=== PATIENT | male | born 1955 | race Caucasian/White ===

== ENCOUNTER 2024-12-09 06:23 | Inpatient (IN) ==
[2024-12-09] MEDS ORDERED: PRECEDEX INJ VIAL ONE (06:54)
[2024-12-09] MEDS ORDERED: KETAMINE HCL ONE (06:54)
--- NOTE | 2024-12-09 07:48 | EKG ---
Test Reason : pre-op patient Blood Pressure : */* mmHG Vent. Rate : 61 BPM Atrial Rate : 61 BPM P-R Int : 200 ms QRS Dur : 104 ms QT Int : 436 ms P-R-T Axes : 24 -36 38 degrees QTc Int : 438 ms Normal sinus rhythm Left axis deviation Low voltage QRS Possible Lateral infarct , age undetermined Abnormal ECG No previous ECGs available Confirmed by Williams Dove MD ([id number]) on 12/09/2024 10:59:09 AM Referred By: Confirmed By: Williams Dove MD
[2024-12-09 08:01] LABS: MEAN PLATELET VOLUME 8.2 fL (7.4-11.0); RED CELL DISTRIBUTION WIDTH 13.8 % (11.6-16.5)
[2024-12-09 08:17] LABS: COR NA(FOR HYPERGLY) 140 mmol/L (136-145); CREATININE 1.33 mg/dL (0.70-1.30); eGFR NON BLACK RACES 56 (>60)
[2024-12-09] MEDS: LR 1,000 ML IV 1,000 ML IV SCH (09:30)
--- NOTE | 2024-12-09 10:42 | DR.H&P ---
H&P History & Physical for Day of: H&P Date: 12/09/24 Chief Complaint Chief Complaint: Painful cold left great toe and other toes History of Present Illness History of Present Illness: This patient is 69-year-old male who is a resident of a skilled nurse facility with multiple medical problems including atrial fibrillation on anticoagulation, Parkinson disease, schizophrenia, hypertension, hyperlipidemia, hypothyroidism, gout and gastroesophageal reflux who has pain in his left great toe with discoloration consistent with ischemia. He denies diabetes and has never been a smoker. He also has the stigmata of both leg having significant venous insufficiency. He is here for control of the pain and evaluation for possible arterial intervention. Past Medical History Past Medical History: Dyslipidemia, GERD, Gout, Hypertension, Hypothyroidism and Schizophrenia Additional Medical History: Atrial fibrillation, Parkinson disease, Past Surgical History Surgical History: Appendectomy and Cholecystectomy Family History Family Medical History: Diabetes Mellitus and Coronary Artery Disease Social History Does patient currently use any type of tobacco product: No Alcohol Use: None Drug Use: None Medications Home Medications: Home Medications Medication Instructions Recorded Confirmed Type acetaminophen 325 mg capsule 650 mg PO QID PRN Headach e 12/09/24 12/09/24 History allopurinol 100 mg tablet 100 mg PO DAILY 12/09/2408/30 History apixaban 5 mg tablet (Eliquis) 5 mg PO BID 12/09/24 History aspirin 81 mg tablet 81 mg PO DAILY 12/09/2408/30 History calcium carbonate 600 mg PO DAILY 12/09/2408/30 History carbidopa 25 mg-levodopa 100 mg 1 tab PO QID 12/09/24 12/09/24 History tablet castor oil 1 ea miscellaneous HS 12/09/24 History cholecalciferol (vitamin D3) 125 50,000 unit PO WEEKLY 12/09/24 12/09/24 History mcg (5,000 unit) tablet (Vitamin D3) dicyclomine 10 mg capsule 10 mg PO BID 12/09/24 History docusate sodium 100 mg capsule 100 mg PO BID 12/09/24 12/09/24 History (Colace) ferrous sulfate 325 mg (65 mg 325 mg PO TID 12/09/24 0 12/09/24 History iron) tablet fluticasone propionate 50 1 spray intranasal DAILY 08/3012/09/24 History mcg/actuation nasal spray,suspension (Flonase Allergy Relief) furosemide 40 mg tablet (Lasix) 40 mg PO DAILY 5 12/09/24 History gabapentin 300 mg capsule 300 mg PO BID 12/09/2412/09 History levothyroxine 75 mcg tablet 75 mcg PO QAM 12/09/2408/30 History (Synthroid) linaclotide 72 mcg capsule 72 mcg PO DAILY PRN 5 12/09/24 History (Linzess) loratadine 10 mg tablet 10 mg PO DAILY 12/09/2408/30 History metoclopramide HCl 5 mg tablet 10 mg PO ACHS 12/09/24 12/09/24 History metolazone 2.5 mg tablet 2.5 mg PO QMWF 12/09/2408/30 History ondansetron HCl 4 mg tablet 4 mg PO HS 12/09/24 History pantoprazole 40 mg tablet,delayed 40 mg PO BID 5 12/09/24 History release (Protonix) phenobarbital 15 mg tablet 45 mg PO DAILY 12/09/2408/30 History phenobarbital 30 mg tablet 30 mg PO HS 12/09/24 History pimavanserin 34 mg capsule 34 mg PO DAILY 12/09/2408/30 History (Nuplazid) pimozide 1 mg tablet 1 mg PO DAILY 12/09/2412/09 History polyethylene glycol 3350 17 gram 17 g PO DAILY PRN Con stipation 12/09/24 12/09/24 History oral powder packet polyvinyl alcohol 1.4 % eye drops 1 drp ophthalmic (ey e) BID 12/09/24 12/09/24 History simethicone 125 mg chewable tablet 125 mg PO TID PRN D yspepsia 12/09/24 12/09/24 History simvastatin 40 mg tablet 40 mg PO HS 12/09/24 5 History sucralfate 1 gram tablet (Carafate) 1 g PO QID 5 12/09/24 History topiramate 25 mg tablet 25 mg PO BID 12/09/24 History tramadol 50 mg tablet 50 mg PO QID PRN Pain, Moder ate 12/09/24 12/09/24 History Allergies Allergies Allergy/AdvReac Type Severity Reaction Status Date / Time adhesive tape Allergy Verified 12/09/24 08:39 codeine Allergy Verified 12/09/24 08:39 hydrocodone Allergy Verified 12/09/24 08:39 Labs 12/09/24 07:52 12/09/24 07:52 Labs: Laboratory WBC 8.6 X10^3/uL (3.6-10.0) 12/09/24 07:52 RBC 4.16 X10^6/uL (4.7-6.0) L 12/09/24 07:52 Hgb 13.2 g/dL (13.5-18.0) L 12/09/24 07:52 Hct 38.8 % (42.0-54.0) L 12/09/24 07:52 MCV 93.3 fL (80.0-100.0) 12/09/24 07:52 MCH 31.7 pg (27.0-34.0) 12/09/24 07:52 MCHC 34.0 g/dL (33.0-35.0) 12/09/24 07:52 RDW 13.8 % (11.6-16.5) 12/09/24 07:52 Plt Count 165 X10^3/uL (150.0-450.0) 12/09/24 07:52 MPV 8.2 fL (7.4-11.0) 12/09/24 07:52 Neut % (Auto) 67.0 % (42.0-75.0) 12/09/24 07:52 Lymph % (Auto) 21.9 % (21.0-51.0) 12/09/24 07:52 [place] % (Auto) 6.9 % (0.0-13.0) 12/09/24 07:52 Eos % (Auto) 2.9 % (0.9-2.9) 12/09/24 07:52 Baso % (Auto) 1.3 % (0.2-1.0) H 12/09/24 07:52 Neut # (Auto) 5.8 x10^3/uL (2.2-4.8) H 12/09/24 07:52 Lymph # (Auto) 1.9 X10^3/uL (1.3-2.9) 12/09/24 07:52 [place] # (Auto) 0.6 x10^3/uL (0.3-0.8) 12/09/24 07:52 Eos # (Auto) 0.3 x10^3/uL (0.0-0.2) H 12/09/24 07:52 Baso # (Auto) 0.1 X10^3/uL (0.0-0.1) 12/09/24 07:52 Absolute Nucleated RBC 0.1 /100WBC 12/09/24 07:52 Sodium 140 mmol/L (136-145) 12/09/24 07:52 Corrected Sodium 140 mmol/L (136-145) 12/09/24 07:52 Potassium 4.0 mmol/L (3.5-5.1) 12/09/24 07:52 Chloride 105 mmol/L (98-107) 12/09/24 07:52 Carbon Dioxide 35.2 mmol/L (21-32) H 12/09/24 07:52 BUN 26 mg/dL (7-18) H 12/09/24 07:52 Creatinine 1.33 mg/dL (0.70-1.30) H 12/09/24 07:52 Est GFR (MDRD) Af Amer > 60 (>60) 12/09/24 07:52 Est GFR (MDRD) Non-Af 56 (>60) L 12/09/24 07:52 Glucose 114 mg/dL (65-99) H 12/09/24 07:52 Calcium 9.0 mg/dL (8.5-10.1) 12/09/24 07:52 Corrected Calcium TNP 12/09/24 07:52 Total Bilirubin 0.40 mg/dL (0.2-1.0) 12/09/24 07:52 AST 21 Units/L (15-37) 12/09/24 07:52 ALT 22 Units/L (12-78) 12/09/24 07:52 Alkaline Phosphatase 115 Units/L (46-116) 12/09/24 07:52 Total Protein 8.0 g/dL (6.4-8.2) 12/09/24 07:52 Albumin 3.6 g/dL (3.4-5.0) 12/09/24 07:52 Globulin 4.4 g/dL (2.5-4.5) 12/09/24 07:52 Albumin/Globulin Ratio 0.8 Ratio (1.1-2.1) L 12/09/24 07:52 Review of Systems Constitutional: See HPI Eyes: No Symptoms Reported ENT: No Symptoms Reported Respiratory: No Symptoms Reported Cardiovascular: See HPI (atrail fibrillation ) Gastrointestinal: See HPI Genitourinary: No Symptoms Reported Musculoskeletal: See HPI Skin: No Symptoms Reported Neurological: See HPI Physical Exam Vital Signs: Vital Signs Temperature 98.1 F Pulse Rate [Radial] 65 Respiratory Rate 18 Blood Pressure [Left Arm] 123/56 O2 Sat by Pulse Oximetry 95 Oriented: Normal, Time, Person and Place Eyes: Normal Ear: Normal Nose: Normal Throat: Normal Respiratory: Clear Throughout Cardiovascular: Irregular (atrial fibrillation ) and Other (Cool left foot and toes with reddish discoloration of toes consistent with ischemia. Weakly palpable pulses at the ankle bilaterally) : Normal Auscultation: Bowel Sounds: Normal Palpation: Normal Tenderness: Normal Skin: Normal Musculoskeletal: Normal Psychiatric: Other (History of schizophrenia) Mood Description: Calm Affect: Normal Speech Pattern: Appropriate and Unclear Assessment/Plan (1) Atherosclerosis of [place] arteries of extremities with rest pain, left leg: Status: Acute Plan: Patient mated for pain control and CT angiogram of aorta with runoff to determine if intervention is appropriate. (2) Parkinson disease: Status: Acute (3) Schizophrenia: Status: Acute (4) Essential (primary) hypertension: Status: Acute (5) Hyperlipidemia: Status: Acute (6) Hypothyroid: Status: Acute (7) Gastro-esophageal reflux disease without esophagitis: Status: Acute (8) [place] esophagus determined by biopsy: Status: Acute (9) Atrial fibrillation: Status: Acute (10) Gout: Status: Acute
[2024-12-09] MEDS ORDERED: OMNIPAQUE 350 mg/mL 100 mL BTL 100 ML ONE (10:44)
[2024-12-09] MEDS ORDERED: OMNIPAQUE 350 mg/mL 50 mL BTL 50 ML ONE (10:44)
[2024-12-09] MEDS ORDERED: ZOFRAN TAB 4 MG PO PRN (10:49)
[2024-12-09] MEDS ORDERED: MYLICON TAB 80 MG CHEW PO PRN (10:55)
[2024-12-09 12:52] VITALS: BMI 33.0
[2024-12-09] MEDS: SINEMET (PLAIN) 25/100 MG PO SCH (13:58)
[2024-12-09] MEDS: REGLAN TAB 10 MG PO SCH (13:58)
[2024-12-09] MEDS: CARAFATE PO SCH (13:58)
[2024-12-09] MEDS: MIRALAX POWDER (1 DOSE 17 G) PO SCH (20:46)
[2024-12-09] MEDS: ARTIFICIAL TEARS DROPS AFFEYE SCH (20:46)
[2024-12-09] MEDS: NEURONTIN CAP 300 MG PO SCH (20:47)
[2024-12-09] MEDS: COLACE CAP 100 MG PO SCH (20:47)
[2024-12-09] MEDS: ELIQUIS PO SCH (20:47)
[2024-12-09] MEDS: TOPAMAX PO SCH (20:48)
[2024-12-09] MEDS: ZOCOR TAB 40 MG PO SCH (20:48)
[2024-12-09] MEDS: PHENOBARBITAL TAB 30 MG (32.4MG) PO SCH (20:48)
[2024-12-09] MEDS: BENTYL CAP 10 MG PO SCH (20:48)
[2024-12-10] MEDS: HIBICLENS WASH EXT ONE (04:04)
--- NOTE | 2024-12-10 07:34 | RAD ---
EXAMINATION: CHEST, 1 VIEW HISTORY: ischemia; . COMPARISON STUDY: None. TECHNIQUE: A single view of the chest was obtained. FINDINGS: Poor inspiration. Expiratory film. Heart size is enlarged. No acute infiltrates. There is no pneumothorax. Hilar and mediastinal structures and bony structures are unremarkable. Tortuous aorta. IMPRESSION: No acute process in the chest. THIS IS AN ELECTRONICALLY VERIFIED FINAL REPORT 12/10/2024 7:31 AM - Electronically signed by Germain Correia MD
--- NOTE | 2024-12-10 08:05 | CT ---
EXAM: CTA AORTA WITH RUNOFF HISTORY: ISCHEMIA TO LEFT LEG ; COMPARISON: None TECHNIQUE: CT of the abdomen and pelvis with bilateral lower extremity runoff obtained without and with IV contrast. 3D MIPS images obtained and reviewed. Dose reduction techniques including Automated Exposure Control (AEC) and adjustment of mA and kV were utilized. FINDINGS: The visualized portions of the lower thorax demonstrate no acute process. Moderate hiatal hernia. No acute osseous abnormality. Multilevel degenerative changes in the visualized spine. No evidence of aortic aneurysm or dissection. The celiac artery, SMA, bilateral renal arteries, and SEAN appear widely patent. The bilateral common, internal, and external iliac arteries appear widely patent. The right common femoral, superficial femoral, and deep femoral arteries appear widely patent. The right popliteal artery appears widely patent. Contrast bolus timing limits evaluation of the distal right lower extremity arteries. The right anterior tibial artery appears occluded. The right posterior tibial and peroneal arteries appear patent though this is difficult to confirm due to contrast bolus timing. The left common femoral, superficial femoral, and deep femoral arteries are widely patent. The left popliteal artery is widely patent. The left anterior tibial artery appears occluded. The left posterior tibial and peroneal arteries appear patent though contrast bolus is not adequate to confirm patency to the left foot. The liver, spleen, pancreas, bilateral adrenal glands, and bilateral kidneys demonstrate no acute process given contrast bolus timing.. Prior cholecystectomy. No evidence of bowel obstruction. The appendix is not definitively visualized. No secondary signs of appendicitis. Diverticulosis without evidence of diverticulitis. The bladder is unremarkable. No free air or fluid. Nonaneurysmal aorta. IMPRESSION: Likely two-vessel runoff to both feet. The distal right and left posterior tibial and peroneal arteries are likely patent the contrast bolus timing prevents confirmation. No other significant atherosclerotic disease. THIS IS AN ELECTRONICALLY VERIFIED FINAL REPORT 12/10/2024 8:02 AM - Electronically signed by Francisco Lenz MD
[2024-12-10] MEDS ORDERED: PHARMACY CONSULT LTC MEDICATIONS XX SCH (10:00)
[2024-12-10] MEDS: ASPIRIN EC 81 MG PO SCH (10:28)
[2024-12-10] MEDS: DUONEB 0.5 MG/3 MG (3 mL) NEB ONE (11:47)
[2024-12-10] MEDS ORDERED: DUONEB 0.5 MG/3 MG (3 mL) NEB ONE (11:47)
[2024-12-10] MEDS: FENTANYL VIAL INJ 100 mcg ONE (11:49)
[2024-12-10] MEDS: VERSED ONE (11:49)
[2024-12-10] MEDS: ZOFRAN INJ 4 MG VIAL ONE (11:52)
[2024-12-10] MEDS: HEPARIN SODIUM INJ 5000 UNITS ONE (11:54)
[2024-12-10] MEDS: LR 1,000 ML IV 250 ML IV PRN (12:00)
[2024-12-10] MEDS: LR 1,000 ML IV 1,000 ML IV ONE (12:08)
[2024-12-10] MEDS: NS 100 ML IV 100 ML ONE (12:25)
[2024-12-10] MEDS: ANCEF VIAL 1 GRAM ONE (12:25)
[2024-12-10] MEDS: ZOFRAN INJ 4 MG VIAL IVP PRN (12:25)
[2024-12-10] MEDS: ANCEF VIAL 1 GRAM IV PRN (12:30)
[2024-12-10] MEDS: DIPRIVAN VIAL 50 ML IVP PRN (12:42)
[2024-12-10] MEDS: KETAMINE HCL IV PRN (12:42)
[2024-12-10] MEDS: PRECEDEX INJ VIAL IVP PRN (12:42)
[2024-12-10] MEDS: DIPRIVAN VIAL 20 ML ONE (12:45)
[2024-12-10] MEDS: HEPARIN 1,000 UNIT/500 ML-NS 3,000 UNIT/1,500 ML IV.SOLN ONE (12:55)
[2024-12-10] MEDS: VISIPAQUE 100 ML ONE (12:55)
[2024-12-10] MEDS: MARCAINE 0.5% ONE (12:55)
[2024-12-10] MEDS: VISIPAQUE 50 ML ONE (12:55)
[2024-12-10] MEDS: EPHEDRINE SULFATE INJ ONE (12:55)
[2024-12-10] MEDS: EPHEDRINE SULFATE INJ IVP PRN (12:56)
[2024-12-10] MEDS ORDERED: HEPARIN SODIUM INJ 5000 UNITS IVP PRN (12:58)
[2024-12-10] MEDS: FENTANYL VIAL INJ 100 mcg IVP PRN (13:10)
[2024-12-10] MEDS: VERSED IVP PRN (13:11)
[2024-12-10] MEDS: PROTAMINE SULFATE 50 MG VIAL IVP PRN (13:13)
[2024-12-10] MEDS ORDERED: PROTAMINE SULFATE 50 MG VIAL ONE (13:13)
--- NOTE | 2024-12-10 13:20 | OR.IMMED ---
IMMEDIATE POST-OP NOTE Immediate Post-Op Note Date of surgery/procedure: 12/10/24 Pre-Op Diagnosis: Critical ischemia of the left great toe Post-Op Diagnosis: Same Procedure: Aortogram, arteriogram left leg, see findings Description of Procedure: Dictated Surgeon/Credit Compliance Officer: Mukul Figueroa MD, FACS Findings: Normal aorta and iliac vessels, normal superficial artery and popliteal artery, occluded left anterior tibial artery after its takeoff with no reconstitution of the ankle. Large peroneal and posterior tibial artery going to the ankle. Good flow into the foot but the distal vessels are sparse going towards the great toe where the pain is. Estimated Blood Loss: <50 cc Complications: none Progress Notes: return to floor, con trevor Cerda, begin diet.
[2024-12-10] MEDS: VITAMIN D3 125 mcg (5,000 UNITS) PO SCH (15:58)
[2024-12-10] MEDS: TUMS PO SCH (15:59)
[2024-12-10] MEDS: LINZESS PO SCH (15:59)
[2024-12-10] MEDS: FLONASE NASAL SPRAY ENOSTRIL SCH (15:59)
[2024-12-10] MEDS: CLARITIN PO SCH (16:00)
[2024-12-10] MEDS: ZYLOPRIM PO SCH (16:30)
[2024-12-10] MEDS: HEMOCYTE PLUS PO SCH (17:27)
[2024-12-10] MEDS: LASIX PO SCH (17:27)
[2024-12-10] MEDS: PROTONIX TAB 40 MG PO SCH (17:28)
[2024-12-11] MEDS: PERCOCET TAB 5/325 MG PO PRN (04:13)
[2024-12-11 04:59] LABS: MEAN PLATELET VOLUME 9.0 fL (7.4-11.0); RED CELL DISTRIBUTION WIDTH 13.6 % (11.6-16.5)
[2024-12-11 08:59] VITALS: BP 125/61; PULSE 59; RESP 18; TEMP 97.6; O2SAT 99
--- NOTE | 2024-12-11 09:31 | W.DIS.FURT ---
Summary of Discharge Discharge Summary of Date Date of Exam: 12/11/24 Admission Date Date of Admission: 12/09/24 Admission Diagnosis Hospital Course: This is a 69-year-old male currently a resident of a nursing home facility with diagnosis of schizophrenia and Parkinson's disease and atrial fibrillation who had been complaining of pain of the left great toe and other toes with discoloration. Patient was admitted for pain control and evaluation on 12/09/[address] angiogram was not especially helpful with lack of filling distally consistent with possible disease distally. On table arteriogram performed on December 10, 2024 showed an occluded left anterior tibial artery which did not reconstitute however the patient had a large peroneal and posterior tibial arteries which did fill the foot. Digital flow to the toes was not especially robust. This could be the source. Certainly the patient has no tissue loss at this time. There is nothing to be done from a intervention or surgical standpoint but observe this and treat accordingly. Vital Signs: Vital Signs (72 hours) 12/09/24 07:33 12/09/24 08:00 12/09/24 11:45 Temperature 98.1 F Pulse Rate Pulse Rate [Radial] 65 Respiratory Rate 18 Blood Pressure Blood Pressure [Left Arm] 123/56 O2 Sat by Pulse Oximetry 95 Oxygen Delivery Method Room Air Room Air Room Air Oxygen Flow Rate 2 FIO2% 28 12/09/24 12:00 12/09/24 16:00 12/09/24 19:00 Temperature 97.6 F 98.3 F Pulse Rate Pulse Rate [Radial] 70 59 L Respiratory Rate 24 18 Blood Pressure Blood Pressure [Left Arm] 125/58 124/69 O2 Sat by Pulse Oximetry 96 96 Oxygen Delivery Method Room Air Room Air Nasal Cannula Oxygen Flow Rate 2 FIO2% 12/09/24 20:00 12/09/24 20:50 12/09/24 22:51 Temperature 97.9 F Pulse Rate Pulse Rate [Radial] 62 Respiratory Rate 21 Blood Pressure Blood Pressure [Left Arm] 111/64 O2 Sat by Pulse Oximetry 97 Oxygen Delivery Method Room Air Nasal Cannula Nasal Cannula Oxygen Flow Rate 2 2 FIO2% 12/10/24 00:00 12/10/24 04:00 12/10/24 07:00 Temperature 98.6 F 97.7 F Pulse Rate Pulse Rate [Radial] 61 62 Respiratory Rate 20 19 Blood Pressure Blood Pressure [Left Arm] 99/62 115/60 O2 Sat by Pulse Oximetry 97 98 Oxygen Delivery Method Nasal Cannula Nasal Cannula Nasal Cannula Oxygen Flow Rate 2 FIO2% 12/10/24 08:00 12/10/24 09:07 12/10/24 11:32 Temperature 97.0 F L 98.0 F Pulse Rate Pulse Rate [Radial] 57 L 63 Respiratory Rate 18 18 Blood Pressure Blood Pressure [Left Arm] 119/58 119/58 O2 Sat by Pulse Oximetry 97 97 Oxygen Delivery Method Nasal Cannula Nasal Cannula Nasal Cannula Oxygen Flow Rate 2 FIO2% 28 12/10/24 11:47 12/10/24 12:17 12/10/24 13:30 Temperature 98.0 F 96.9 F L Pulse Rate 57 L 61 Pulse Rate [Radial] 52 L Respiratory Rate 20 19 Blood Pressure 113/60 Blood Pressure [Left Arm] 140/63 O2 Sat by Pulse Oximetry 97 98 Oxygen Delivery Method Nasal Cannula Oxygen Flow Rate FIO2% 12/10/24 13:45 12/10/24 14:00 12/10/24 14:15 Temperature 97.8 F 98.0 F 97.8 F Pulse Rate Pulse Rate [Radial] 55 L 50 L 54 L Respiratory Rate 18 18 17 Blood Pressure Blood Pressure [Left Arm] 127/59 114/55 107/53 O2 Sat by Pulse Oximetry 97 97 96 Oxygen Delivery Method Oxygen Flow Rate FIO2% 12/10/24 14:30 12/10/24 15:30 12/10/24 16:00 Temperature 98.0 F 98.0 F 98.0 F Pulse Rate Pulse Rate [Radial] 55 L 57 L 57 L Respiratory Rate 18 16 16 Blood Pressure Blood Pressure [Left Arm] 116/53 109/55 109/55 O2 Sat by Pulse Oximetry 96 99 99 Oxygen Delivery Method Nasal Cannula Oxygen Flow Rate FIO2% 12/10/24 16:30 12/10/24 17:30 12/10/24 17:56 Temperature 98.1 F 98.0 F 97.9 F Pulse Rate Pulse Rate [Radial] 56 L 56 L 55 L Respiratory Rate 19 18 18 Blood Pressure Blood Pressure [Left Arm] 107/56 112/55 122/55 O2 Sat by Pulse Oximetry 99 98 99 Oxygen Delivery Method Oxygen Flow Rate FIO2% 12/10/24 19:00 12/10/24 20:00 12/10/24 21:15 Temperature 98.1 F Pulse Rate Pulse Rate [Radial] 62 Respiratory Rate 18 Blood Pressure Blood Pressure [Left Arm] 104/60 O2 Sat by Pulse Oximetry 97 Oxygen Delivery Method Nasal Cannula Nasal Cannula Nasal Cannula Oxygen Flow Rate 2 2 FIO2% 28 12/11/24 00:00 12/11/24 03:39 12/11/24 04:13 Temperature 98.6 F 97.8 F Pulse Rate Pulse Rate [Radial] 61 60 Respiratory Rate 20 19 18 Blood Pressure Blood Pressure [Left Arm] 106/64 109/62 O2 Sat by Pulse Oximetry 97 98 Oxygen Delivery Method Nasal Cannula Nasal Cannula Oxygen Flow Rate FIO2% 12/11/24 05:13 12/11/24 07:00 12/11/24 08:00 Temperature 97.6 F Pulse Rate Pulse Rate [Radial] 59 L Respiratory Rate 17 18 Blood Pressure Blood Pressure [Left Arm] 125/61 O2 Sat by Pulse Oximetry 99 Oxygen Delivery Method Nasal Cannula Nasal Cannula Oxygen Flow Rate 2 FIO2% 12/11/24 08:58 Temperature Pulse Rate Pulse Rate [Radial] Respiratory Rate Blood Pressure Blood Pressure [Left Arm] O2 Sat by Pulse Oximetry Oxygen Delivery Method Nasal Cannula Oxygen Flow Rate 2 FIO2% 28 Labs: Laboratory Last Values WBC 7.3 X10^3/uL (3.6-10.0) 12/11/24 04:35 RBC 3.74 X10^6/uL (4.7-6.0) L 12/11/24 04:35 Hgb 11.9 g/dL (13.5-18.0) L 12/11/24 04:35 Hct 34.5 % (42.0-54.0) L 12/11/24 04:35 MCV 92.3 fL (80.0-100.0) 12/11/24 04:35 MCH 31.8 pg (27.0-34.0) 12/11/24 04:35 MCHC 34.4 g/dL (33.0-35.0) 12/11/24 04:35 RDW 13.6 % (11.6-16.5) 12/11/24 04:35 Plt Count 141 X10^3/uL (150.0-450.0) L 12/11/24 04:35 MPV 9.0 fL (7.4-11.0) 12/11/24 04:35 Neut % (Auto) 65.2 % (42.0-75.0) 12/11/24 04:35 Lymph % (Auto) 21.8 % (21.0-51.0) 12/11/24 04:35 [place] % (Auto) 8.5 % (0.0-13.0) 12/11/24 04:35 Eos % (Auto) 3.9 % (0.9-2.9) H 12/11/24 04:35 Baso % (Auto) 0.6 % (0.2-1.0) 12/11/24 04:35 Neut # (Auto) 4.8 x10^3/uL (2.2-4.8) 12/11/24 04:35 Lymph # (Auto) 1.6 X10^3/uL (1.3-2.9) 12/11/24 04:35 [place] # (Auto) 0.6 x10^3/uL (0.3-0.8) 12/11/24 04:35 Eos # (Auto) 0.3 x10^3/uL (0.0-0.2) H 12/11/24 04:35 Baso # (Auto) 0.0 X10^3/uL (0.0-0.1) 12/11/24 04:35 Absolute Nucleated RBC 0.0 /100WBC 12/11/24 04:35 Sodium 140 mmol/L (136-145) 12/09/24 07:52 Corrected Sodium 140 mmol/L (136-145) 12/09/24 07:52 Potassium 4.0 mmol/L (3.5-5.1) 12/09/24 07:52 Chloride 105 mmol/L (98-107) 12/09/24 07:52 Carbon Dioxide 35.2 mmol/L (21-32) H 12/09/24 07:52 BUN 26 mg/dL (7-18) H 12/09/24 07:52 Creatinine 1.33 mg/dL (0.70-1.30) H 12/09/24 07:52 Est GFR (MDRD) Af Amer > 60 (>60) 12/09/24 07:52 Est GFR (MDRD) Non-Af 56 (>60) L 12/09/24 07:52 Glucose 114 mg/dL (65-99) H 12/09/24 07:52 Calcium 9.0 mg/dL (8.5-10.1) 12/09/24 07:52 Corrected Calcium TNP 12/09/24 07:52 Total Bilirubin 0.40 mg/dL (0.2-1.0) 12/09/24 07:52 AST 21 Units/L (15-37) 12/09/24 07:52 ALT 22 Units/L (12-78) 12/09/24 07:52 Alkaline Phosphatase 115 Units/L (46-116) 12/09/24 07:52 Total Protein 8.0 g/dL (6.4-8.2) 12/09/24 07:52 Albumin 3.6 g/dL (3.4-5.0) 12/09/24 07:52 Globulin 4.4 g/dL (2.5-4.5) 12/09/24 07:52 Albumin/Globulin Ratio 0.8 Ratio (1.1-2.1) L 12/09/24 07:52 Blood Type O NEGATIVE 12/10/24 11:41 Antibody Screen Negative 12/10/24 11:41 Reason For Visit: CRITICAL ISCHEMIA OF LEFT LEG Discharge Date Discharge Date: 12/11/24 Discharge Diagnosis All Active Problems (Updated 12/09/24 @ 10:41 by Clarence Figueroa) Gout (Acute) Atrial fibrillation (Acute) [place] esophagus determined by biopsy (Acute) Gastro-esophageal reflux disease without esophagitis (Acute) Hypothyroid (Acute) Hyperlipidemia (Acute) Essential (primary) hypertension (Acute) Schizophrenia (Acute) Parkinson disease (Acute) Atherosclerosis of [place] arteries of extremities with rest pain, left leg (Acute) Plan of Treatment: as per hospital course Discharge Medications Discharge Medications: adhesive tape Allergy (Verified 12/09/24 08:39) codeine Allergy (Verified 12/09/24 08:39) hydrocodone Allergy (Verified 12/09/24 08:39) CONTINUE taking the following medications acetaminophen 325 mg capsule 650 mg PO QID PRN Headache 12/09/24 [History] allopurinol 100 mg tablet 100 mg PO DAILY 12/09/24 [History] apixaban 5 mg tablet (Eliquis) 5 mg PO BID 12/09/24 [History] aspirin 81 mg tablet 81 mg PO DAILY 12/09/24 [History] calcium carbonate 600 mg PO DAILY 12/09/24 [History] carbidopa 25 mg-levodopa 100 mg tablet 1 tab PO QID 12/09/24 [History] castor oil 1 ea miscellaneous HS 12/09/24 [History] cholecalciferol (vitamin D3) 125 mcg (5,000 unit) tablet (Vitamin D3) 50,000 unit PO WEEKLY 12/09/24 [History] dicyclomine 10 mg capsule 10 mg PO BID 12/09/24 [History] docusate sodium 100 mg capsule (Colace) 100 mg PO BID 12/09/24 [History] ferrous sulfate 325 mg (65 mg iron) tablet 325 mg PO TID 12/09/24 [History] fluticasone propionate 50 mcg/actuation nasal spray,suspension (Flonase Allergy Relief) 1 spray intranasal DAILY 12/09/24 [History] furosemide 40 mg tablet (Lasix) 40 mg PO DAILY 12/09/24 [History] gabapentin 300 mg capsule 300 mg PO BID 12/09/24 [History] levothyroxine 75 mcg tablet (Synthroid) 75 mcg PO QAM 12/09/24 [History] linaclotide 72 mcg capsule (Linzess) 72 mcg PO DAILY 12/09/24 [History] loratadine 10 mg tablet 10 mg PO DAILY 12/09/24 [History] metoclopramide HCl 5 mg tablet 10 mg PO ACHS 12/09/24 [History] metolazone 2.5 mg tablet 2.5 mg PO QMWF 12/09/24 [History] ondansetron HCl 4 mg tablet 4 mg PO HS 12/09/24 [History] pantoprazole 40 mg tablet,delayed release (Protonix) 40 mg PO BID 12/09/24 [History] phenobarbital 15 mg tablet 45 mg PO DAILY 12/09/24 [History] phenobarbital 30 mg tablet 30 mg PO HS 12/09/24 [History] pimavanserin 34 mg capsule (Nuplazid) 34 mg PO DAILY 12/09/24 [History] pimozide 1 mg tablet 1 mg PO DAILY 12/09/24 [History] polyethylene glycol 3350 17 gram oral powder packet 17 g PO DAILY Constipation 12/09/24 [History] polyvinyl alcohol 1.4 % eye drops 1 drp ophthalmic (eye) BID 12/09/24 [History] simethicone 125 mg chewable tablet 125 mg PO TID PRN Dyspepsia 12/09/24 [History] simvastatin 40 mg tablet 40 mg PO HS 12/09/24 [History] sucralfate 1 gram tablet (Carafate) 1 g PO QID 12/09/24 [History] topiramate 25 mg tablet 25 mg PO BID 12/09/24 [History] tramadol 50 mg tablet 50 mg PO QID PRN Pain, Moderate 12/09/24 [History] Discharge Disposition Assessment: see hospital course Discharge Plan Discharge Plan Hospital Course: This is a 69-year-old male currently a resident of a nursing home facility w ith diagnosis of schizophrenia and Parkinson's disease and atrial fibrillation who had been complaining of pain of the left great toe and other toes with discoloration. Patient was admitted for pain control and evaluation on 12/09/[address] angiogram was not especially helpful with lack of filling distally consistent with possible disease distally. On table arteriogram performed on December 10, 2024 showed an occluded left anterior tibial artery which did not reconstitute however the patient had a large peroneal and posterior tibial arteries which did fill the foot. Digital flow to the toes was not especially robust. This could be the source. Certainly the patient has no tissue loss at this time. There is nothing to be done from a intervention or surgical standpoint but observe this and treat accordingly. Health Concerns: Post Hospitalization: new medications and changes needed to prevent readmission or further decline. Pt educated and given instructions on all concerns. Care Plan Goals: christiane control of left foot Plan of Treatment: as per hospital course Assessment: see hospital course Prescriptions: Continued allopurinol 100 mg Tablet 100 mg PO DAILY aspirin 81 mg Tablet 81 mg PO DAILY sucralfate [Carafate] 1 gram Tablet 1 g PO QID calcium carbonate 600 mg calcium (1,500 mg) Tablet 600 mg PO DAILY carbidopa-levodopa 25-100 mg Tablet 1 tab PO QID castor oil Oil 1 ea miscellaneous HS Rx Instructions: apply to bilateral legs for dry scaly skin docusate sodium [Colace] 100 mg Capsule 100 mg PO BID dicyclomine 10 mg Capsule 10 mg PO BID Eliquis 5 mg Tablet 5 mg PO BID ferrous sulfate 325 mg (65 mg iron) Tablet 325 mg PO TID furosemide [Lasix] 40 mg Tablet 40 mg PO DAILY levothyroxine [Synthroid] 75 mcg Tablet 75 mcg PO QAM gabapentin 300 mg Capsule 300 mg PO BID fluticasone propionate [Flonase Allergy Relief] 50 mcg/actuation [place],Susp ension 1 spray INTRANASAL DAILY metolazone 2.5 mg Tablet 2.5 mg PO QMWF polyethylene glycol 3350 17 gram Powder In Packet 17 g PO DAILY pimozide 1 mg Tablet 1 mg PO DAILY metoclopramide HCl 5 mg Tablet 10 mg PO ACHS pantoprazole [Protonix] 40 mg Tablet,Delayed Release (Dr/Ec) 40 mg PO BID phenobarbital 15 mg Tablet 45 mg PO DAILY phenobarbital 30 mg Tablet 30 mg PO HS loratadine 10 mg Tablet 10 mg PO DAILY Linzess 72 mcg Capsule 72 mcg PO DAILY Nuplazid 34 mg Capsule 34 mg PO DAILY polyvinyl alcohol 1.4 % Drops 1 drp ophthalmic (eye) BID Rx Instructions: Instill 1 drop in both eyes twice a day topiramate 25 mg Tablet 25 mg PO BID simvastatin 40 mg Tablet 40 mg PO HS simethicone 125 mg Tablet,Chewable 125 mg PO TID PRN (Reason: Dyspepsia) ondansetron HCl [Zofran] 4 mg Tablet 4 mg PO HS tramadol 50 mg Tablet 50 mg PO QID PRN (Reason: Pain, Moderate) acetaminophen [Tylenol] 325 mg Capsule 650 mg PO QID PRN (Reason: Headache) cholecalciferol (vitamin D3) [Vitamin D3] 125 mcg (5,000 unit) Tablet 50,000 unit PO WEEKLY Rx Instructions: take 1 capsule by mouth one time every Monday Orders to Discharge Patient Discharge Orders: Discharge (Routine); Ordered 12/11/24 Ordered By: Clarence Figueroa Follow ups/Referrals Follow ups/Referrals: [facility] [Primary Care Provider] - 1 WEEK Instructions Instructions: Endovascular Therapy for Peripheral Vascular Disease: What to Know After Stand Alone Forms: Excuse From Work or School, Find Help Web Site, Post Hospital Follow Up Care Print Language: PERSIAN
--- NOTE | 2024-12-11 11:54 | DR.OPNOTE ---
OP NOTE Pre-Op Diagnosis: Critical ischemia left leg Post-Op Diagnosis: No artery requiring intervention of the left leg, see f indings below Procedure Date Date Of Procedure: 12/10/24 Procedure: PROCEDURE: Diagnostic aortogram, diagnostic arteriogram left leg, NARRATIVE: The patient was taken to the operative suite and placed in the supine position. The right groin and entire left leg were prepped and draped in sterile fashion. Patient was given intravenous sedation supervised by myself. Timeout for the procedure obtained. Ultrasound used to identify the femoral artery in the right groin and the skin overlying it infiltrated with 0.5% Herber papito. Ultrasound used to guide puncture of the right femoral artery and a 0.012 inch guidewire placed. Incision made over the guidewire at the skin edge with a #11 knife blade and the micro sheath placed over the guidewire into the femoral artery. Small wire exchanged for a 0.035 inch Advantage Glidewire and the micro sheath exchanged for a 5 [place] vascular sheath. Patient given 5000 units of intravenous heparin. Omni catheter placed over the guidewire into the aorta and power injector used to perform aortogram showing normal aorta and iliac arteries . The Omni catheter was then used to direct the guidewire down the left common iliac artery to the distal left external iliac artery. The Omni catheter exchanged for a [place] catheter and sequential arteriograms perprmed of the left leg showing large peroneal and posterior tibial arteries extending to the foot. Occluded proximal left anterior tibial artery which does not reconstitute at the ankle. The digital flow into the toes was poor. This could be the source of his pain. No vessel that would take intervention. Wires and devices removed from the Catapult sheath. Catapult sheath exchanged over the wire for a Angio-Seal device used to close the puncture of the right femoral artery. Patient taken to same-day surgery in good condition. Type of Anesthesia: Local (0.5% Marcaine) Anesthesia Comment: Plus MAC Findings: Normal arterial vessels proximally. Occluded left anterior tibial artery with no reconstitution at the ankle. Large peroneal and posterior tibial arteries. Runoff into the foot but poor digital flow into the toes of the left foot Type of Fluids Used:: Lactated Ringers Total Amount of Fluid Infused:: 250 cc Urine output: 100cc EBL: 50 cc Complications:: none Needle/Sponge Count:: correct Disposition/Condition: Pt. tolerated procedure without difficulty. Taken to the floor in stable condi tion.
== END 2024-12-11 11:55 | DRG 300 ==
LOC: MED/SURG → OBSVTOIN 06:54
PROVIDERS: ADMIT Surgery; ATTEND Surgery
DX: I87.2 Venous insufficiency (chronic) (peripheral); D64.89 Other specified anemias; R06.2 Wheezing; I10 Essential (primary) hypertension; R94.4 Abnormal results of kidney function studies; M10.072 Idiopathic gout, left ankle and foot; E03.8 Other specified hypothyroidism; F20.89 Other schizophrenia; Z87.39 Personal history of other diseases of the musculoskeletal system and connective tissue; I48.91 Unspecified atrial fibrillation; Z66 Do not resuscitate; R00.1 Bradycardia, unspecified; I70.222 Atherosclerosis of native arteries of extremities with rest pain, left leg; E78.5 Hyperlipidemia, unspecified; Z01.810 Encounter for preprocedural cardiovascular examination; R26.89 Other abnormalities of gait and mobility; G20.A1 Parkinson's disease without dyskinesia, without mention of fluctuations; K22.70 Barrett's esophagus without dysplasia; K21.9 Gastro-esophageal reflux disease without esophagitis; R94.31 Abnormal electrocardiogram [ECG] [EKG]; Z79.01 Long term (current) use of anticoagulants

== ENCOUNTER 2025-04-11 10:14 | Observation (INO) ==
[2025-04-11] MEDS: LR 1,000 ML IV 1,000 ML IV ONE (11:10)
[2025-04-11] MEDS: XYLOCAINE 2 % (PLAIN) ONE (13:27)
[2025-04-11] MEDS: PRECEDEX INJ VIAL ONE (13:27)
[2025-04-11] MEDS: DIPRIVAN VIAL 20 ML ONE (13:27)
[2025-04-11] MEDS: REGLAN INJ 10 MG VIAL ONE (13:28)
[2025-04-11] MEDS: FENTANYL VIAL INJ 100 mcg ONE (13:28)
[2025-04-11] MEDS: VERSED ONE (13:28)
[2025-04-11] MEDS: ZOFRAN INJ 4 MG VIAL ONE (13:28)
[2025-04-11] MEDS: LR 1,000 ML IV 500 ML IV PRN (13:45)
[2025-04-11] MEDS: PEPCID 20 MG VIAL ONE (13:54)
[2025-04-11] MEDS: DECADRON INJ ONE (13:55)
[2025-04-11] MEDS ORDERED: KETAMINE HCL ONE (14:00)
[2025-04-11] MEDS: VERSED IVP PRN (14:01)
[2025-04-11] MEDS: ZOFRAN INJ 4 MG VIAL IVP PRN ×2 (14:02→21:42)
[2025-04-11] MEDS: PEPCID 20 MG VIAL IVP PRN (14:04)
[2025-04-11] MEDS: REGLAN INJ 10 MG VIAL IVP PRN (14:05)
[2025-04-11] MEDS: NS 100 ML IV 100 ML ONE (14:07)
[2025-04-11] MEDS: ANCEF VIAL 1 GRAM IV PRN (14:07)
[2025-04-11] MEDS: ANCEF VIAL 1 GRAM ONE (14:07)
[2025-04-11] MEDS: XYLOCAINE 2 % (PLAIN) IVP PRN (14:10)
[2025-04-11] MEDS: PRECEDEX INJ VIAL IVP PRN (14:11)
[2025-04-11] MEDS: KETAMINE HCL IVP PRN (14:11)
[2025-04-11] MEDS: DIPRIVAN VIAL 100 ML IVP PRN (14:11)
[2025-04-11] MEDS: DECADRON INJ IVP PRN (14:20)
[2025-04-11] MEDS: MARCAINE 0.25% INJ ONE (14:25)
[2025-04-11] MEDS: EPHEDRINE SULFATE INJ ONE (14:25)
[2025-04-11] MEDS: EPHEDRINE SULFATE INJ IVP PRN (14:35)
[2025-04-11] MEDS: FENTANYL VIAL INJ 100 mcg IVP PRN (14:48)
[2025-04-11] MEDS ORDERED: TYLENOL 325 MG TAB PO PRN (15:15)
[2025-04-11] MEDS: NS 1,000 ML IV 1,000 ML IV SCH (16:31)
[2025-04-11] MEDS: NORCO 5/325 MG TAB PO PRN (18:41)
[2025-04-11] MEDS: COLACE CAP 100 MG PO SCH (21:41)
[2025-04-11] MEDS: DILAUDID INJ IVP PRN (21:42)
--- NOTE | 2025-04-12 05:46 | MD.NOTE ---
Provider Note Note Note: S: Patient is doing well. Patient is experiencing some pain to his osteotomy site. Patient does fine with [place]. O: Dressing was heavily saturated. Once removed, no maceration was noted. Minimal bleeding noted to most distal pin site. No signs of infection. Edema consistent with surgery. A: Patient is post op day 1 TTT osteotomy DOS12/5 due to PAD P: - Patient can return to facility, he is a resident of [facility] - patient is to remain strictly partial weightbearing - Patient will need to follow up with Dr. Lees in the office in one week for post operative management - Pain medication placed in patients chart Please contact with any questions! Dr. Dea Pollard
[2025-04-12 07:07] LABS: COR CA(FOR HYPOALB) 9.2 mg/dL (8.5-10.1); COR NA(FOR HYPERGLY) 141 mmol/L (136-145); CREATININE 1.21 mg/dL (0.70-1.30); eGFR NON BLACK RACES > 60 (>60)
--- NOTE | 2025-04-12 08:15 | RAD ---
EXAM: LOWER LEG, TIB/FIB LEFT HISTORY: Post op TTT osteotomy, ex fix; COMPARISON: No relevant prior study available at the time of interpretation. TECHNIQUE: Four views FINDINGS: Postsurgical changes from TTT osteotomy are noted. There is an external fixator. No apparent complication or abnormality. IMPRESSION: 1. Expected postsurgical changes with external fixator THIS IS AN ELECTRONICALLY VERIFIED FINAL REPORT 04/12/2025 8:11 AM - Electronically signed by Charli Turner MD
[2025-04-12 09:16] LABS: MEAN PLATELET VOLUME 8.5 fL (7.4-11.0); RED CELL DISTRIBUTION WIDTH 13.2 % (11.6-16.5)
[2025-04-12 11:26] VITALS: BP 118/59; TEMP 98
[2025-04-12 12:48] VITALS: PULSE 74; RESP 20; O2SAT 98
== END 2025-04-12 14:50 ==
LOC: SURG1 10:14 → MED/SURG 10:14
PROVIDERS: ADMIT Obstetrics & Gynecology Obstetrics; ATTEND Obstetrics & Gynecology Obstetrics
DX: I73.9 Peripheral vascular disease, unspecified; M24.572 Contracture, left ankle; Z98.890 Other specified postprocedural states; G89.18 Other acute postprocedural pain; R06.02 Shortness of breath; M21.172 Varus deformity, not elsewhere classified, left ankle; Z66 Do not resuscitate; I10 Essential (primary) hypertension